=== PATIENT | male | born 1965 | race Caucasian/White ===

== ENCOUNTER 2021-03-13 21:31 | Emergency (ER) | payer OTHER ==
[~2021-03-13] VITALS: Ht 175.3 cm; Wt 86.2 kg
[2021-03-13 23:08] LABS: BASOPHILS ABSOLUTE AUTO 0.05 K/mm3 (0.00-0.23); BASOPHILS PERCENT AUTO 0 % (0-2); EOSINOPHILS ABSOLUTE AUTO 0.03 K/mm3 (0.00-0.68); EOSINOPHILS PERCENT AUTO 0 % (0-6); Hematocrit 44.5 % (37.0-53.0); Hemoglobin 15.2 g/dL (13.5-17.5); IMMATURE GRAN ABSOLUTE AUTO 0.05 K/mm3 (0.00-0.10); IMMATURE GRAN PERCENT AUTO 0 % (0-1); LYMPHOCYTES ABSOLUTE AUTO 0.19 K/mm3 (0.84-5.20); LYMPHOCYTES PERCENT AUTO 2 % (21-46); MONOCYTES ABSOLUTE AUTO 0.21 K/mm3 (0.16-1.47); MONOCYTES PERCENT AUTO 2 % (4-13); Mean Corpuscular HGB 28.9 pg (26.0-34.0); Mean Corpuscular HGB Conc 34.2 g/dL (31.5-36.5); Mean Corpuscular Volume 85 fL (80-100); Mean Platelet Volume 10.9 fL (9.1-12.4); NEUTROPHILS ABSOLUTE AUTO 12.04 K/mm3 (1.96-9.15); NEUTROPHILS PERCENT AUTO 96 % (41-73); Platelet Count 149 K/mm3 (150-400); RDW Coefficient Variation 13.7 % (11.7-14.2); RDW Standard Deviation 42.7 fL (35.1-46.3); Red Blood Cell Count 5.26 M/mm3 (4.30-5.90); White Blood Cell Count 12.57 K/mm3 (4.00-11.30)
[2021-03-13 23:21] LABS: Alanine Aminotransfer (ALT/SGP 88 U/L (12-78); Albumin, Blood 3.2 g/dL (3.4-5.0); Albumin/Globulin Ratio 0.7 (0.8-1.8); Alk Phos 109 U/L (50-136); Anion Gap 7 mmol/L (6-16); Aspartate Aminotrans (AST/SGOT 56 U/L (12-37); Blood Urea Nitrogen 22 mg/dL (8-24); Bun/Creatinine Ratio 23.5 (12.0-20.0); CO2, Blood 23 mmol/L (21-32); Calcium, Blood 8.6 mg/dL (8.5-10.1); Chloride, Blood 106 mmol/L (98-108); Creatinine, Blood 0.94 mg/dL (0.60-1.20); Globulin, Blood 4.3 g/dL (2.2-4.0); Glomerular Filtration Rate >60 (60-); Glucose, Blood 134 mg/dL (70-99); Potassium, Blood 4.1 mmol/L (3.5-5.5); Sodium, Blood 136 mmol/L (136-145); Total Protein, Blood 7.5 g/dL (6.4-8.2)
[2021-03-13] MEDS ORDERED: ONDA4ODT MM (23:31)
== END 2021-03-13 23:43 | disposition home or self-care (01) ==
LOC: ER 21:31
PROVIDERS: Student in an Organized Health Care Education/Training Program
DX: R11.2 Nausea with vomiting, unspecified (principal); R19.7 Diarrhea, unspecified
CPT/HCPCS: 80053; 83690; 85025; 96374; 99283-25; J2765; J7030

== ENCOUNTER → 2022-01-06 | Outpatient (CLI) | payer OTHER ==
[~2022-01-06] MED LIST: ONDA4ODT MM
[2022-01-06 09:04] LABS: Source, Urine Clean Catch
[2022-01-06 12:50] LABS: Appearance, Urine Clear (Clear); Bilirubin, Urine Neg (Neg); Blood, Urine 2+ (Neg); Color, Urine Yellow (P-Yellow); Glucose Qualitative, Urine Neg (Neg); Ketones, Urine Neg (Neg); Leukocyte Esterase, Urine Neg (Neg); Nitrite, Urine Neg (Neg); Protein, Urine 2+ (Neg); Urobilinogen, Urine NORM (Normal)
[2022-01-06 13:09] LABS: Bacteria Not Seen /hpf; Squamous Epithelial Cells Few /hpf (Few); White Blood Cells, Urine 0-2 /hpf (0-5)
[2022-01-06 13:12] LABS: Hyaline Casts 0-2 /lpf (0-2)
[2022-01-06 13:17] LABS: Creatinine, Urine Random 42.2 mg/dL (27.00-270.00); Protein/Creat Ratio, Ur Random 0.9
== END | disposition home or self-care (01) ==
LOC: LAB 08:30 → LAB SHORT 08:30
PROVIDERS: Internal Medicine Nephrology
DX: N18.2 Chronic kidney disease, stage 2 (mild) (principal); R80.9 Proteinuria, unspecified
CPT/HCPCS: 81001; 82570; 84156

== ENCOUNTER 2022-05-16 00:07 | Inpatient (IN) | payer OTHER ==
[~2022-05-16] VITALS: Ht 175.3 cm; Wt 94.3 kg
[~2022-05-16 00:07] MED LIST changes: +ATOR40TA PO; +INSULIN GL100 UNIT/2 SC; +Prinivil10 MG PO; +RYBELSUS3 MG PO; +XARELTO20 M1 PO
[2022-05-16 00:37] LABS: BASOPHILS ABSOLUTE AUTO 0.02 K/mm3 (0.00-0.23); BASOPHILS PERCENT AUTO 0 % (0-2); EOSINOPHILS ABSOLUTE AUTO 0.01 K/mm3 (0.00-0.68); EOSINOPHILS PERCENT AUTO 0 % (0-6); Hematocrit 24.5 % (37.0-53.0); Hemoglobin 8.8 g/dL (13.5-17.5); IMMATURE GRAN ABSOLUTE AUTO 0.26 K/mm3 (0.00-0.10); IMMATURE GRAN PERCENT AUTO 2 % (0-1); LYMPHOCYTES ABSOLUTE AUTO 1.86 K/mm3 (0.84-5.20); LYMPHOCYTES PERCENT AUTO 11 % (21-46); MONOCYTES ABSOLUTE AUTO 1.45 K/mm3 (0.16-1.47); MONOCYTES PERCENT AUTO 9 % (4-13); Mean Corpuscular HGB 29.5 pg (26.0-34.0); Mean Corpuscular HGB Conc 35.9 g/dL (31.5-36.5); Mean Corpuscular Volume 82 fL (80-100); Mean Platelet Volume 10.7 fL (9.1-12.4); NEUTROPHILS ABSOLUTE AUTO 12.92 K/mm3 (1.96-9.15); NEUTROPHILS PERCENT AUTO 78 % (41-73); Platelet Count 207 K/mm3 (150-400); RDW Coefficient Variation 14.5 % (11.7-14.2); RDW Standard Deviation 42.7 fL (35.1-46.3); Red Blood Cell Count 2.98 M/mm3 (4.30-5.90); White Blood Cell Count 16.52 K/mm3 (4.00-11.30)
[2022-05-16 00:58] LABS: Albumin, Blood 2.7 g/dL (3.4-5.0); Albumin/Globulin Ratio 0.8 (0.8-1.8); Bilirubin, Total 0.6 mg/dL (0.1-1.0); Bun/Creatinine Ratio 56.4 (12.0-20.0); Calcium, Blood 8.1 mg/dL (8.5-10.1); Creatinine, Blood 1.1 mg/dL (0.60-1.20); Globulin, Blood 3.4 g/dL (2.2-4.0); Potassium, Blood 3.8 mmol/L (3.5-5.5); Total Protein, Blood 6.1 g/dL (6.4-8.2)
[2022-05-16 04:08] LABS: Hematocrit 22.3 % (37.0-53.0); Hemoglobin 7.7 g/dL (13.5-17.5); Mean Corpuscular HGB 28.8 pg (26.0-34.0); Mean Corpuscular HGB Conc 34.5 g/dL (31.5-36.5); Mean Corpuscular Volume 84 fL (80-100); Mean Platelet Volume 10.6 fL (9.1-12.4); Platelet Count 176 K/mm3 (150-400); RDW Coefficient Variation 14.5 % (11.7-14.2); RDW Standard Deviation 43.8 fL (35.1-46.3); Red Blood Cell Count 2.67 M/mm3 (4.30-5.90); White Blood Cell Count 14.71 K/mm3 (4.00-11.30)
[2022-05-16] MEDS ORDERED: OXYC10TA19 PO (04:10)
--- NOTE | 2022-05-16 04:57 | NUR ---
ADMIT NOTE 57 YR OLD MALE ADMITTED TO FLOOR FROM THE ED WITH DX OF INTRACTABLE N/V. ALSO REPORTED DARK STOOLS. ALERT AND ORIENTED. ORIENTED TO CALL LIGHT USE. GABRIELLA LIGHT IN REACH
[2022-05-16 04:58] LABS: Bun/Creatinine Ratio 59.6 (12.0-20.0); Creatinine, Blood 1.04 mg/dL (0.60-1.20); Potassium, Blood 3.5 mmol/L (3.5-5.5)
--- NOTE | 2022-05-16 05:42 | NUR ---
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 AWAKE, IRRITABLE. IVF OF NS AT 150 ML/HR. RECEIVED THORAZINE PO FOR HICCUPS. CALL LIGHT IN REACH. WATCHING TV.
--- NOTE | 2022-05-16 18:19 | NUR ---
SHIFT SUMMARY PT HAS BEEN COOPERATIVE WITH CARE THIS AFTERNOON. PT TOOK A LONG NAP AND HAS BEEN TOLERATING CLEAR LIQUIDS. NO COMPLAINTS OF NAUSEA OR ABDOMINAL PAIN. PT HAS HAD AN EPISODE OF HICCUPS. THORAZINE ADMINISTERED FOR HICCUPS WITH GOOD RESULTS AND THE HICCUPS RESOLVED. IVF INFUSING WITHOUT DIFFICULTY. NO STOOLS THIS SHIFT. NO ACUTE CHANGES AT THIS TIME. CALL LIGHT IN REACH. BED ALARM ON FOR SAFETY. WILL CONTINUE TO MONITOR.
--- NOTE | 2022-05-17 05:18 | NUR ---
NIGHTSHIFT SUMMARY Patient appeared frusterated at the start of shift, declined to have vitals done. RN gave meds for pain, HS meds. Patient complaining of back pain. NS infusing continously. Patient slept comfortably all night, awoke once to request nausea PRN. No episdoes of emesis this shift. No BMs this shift, awaiting stool sample.
[2022-05-17 05:51] LABS: BASOPHILS ABSOLUTE AUTO 0.03 K/mm3 (0.00-0.23); BASOPHILS PERCENT AUTO 0 % (0-2); EOSINOPHILS ABSOLUTE AUTO 0.15 K/mm3 (0.00-0.68); EOSINOPHILS PERCENT AUTO 2 % (0-6); Hematocrit 19.1 % (37.0-53.0); Hemoglobin 6.7 g/dL (13.5-17.5); IMMATURE GRAN ABSOLUTE AUTO 0.22 K/mm3 (0.00-0.10); IMMATURE GRAN PERCENT AUTO 2 % (0-1); LYMPHOCYTES ABSOLUTE AUTO 2.05 K/mm3 (0.84-5.20); LYMPHOCYTES PERCENT AUTO 21 % (21-46); MONOCYTES ABSOLUTE AUTO 0.76 K/mm3 (0.16-1.47); MONOCYTES PERCENT AUTO 8 % (4-13); Mean Corpuscular HGB 29.6 pg (26.0-34.0); Mean Corpuscular HGB Conc 35.1 g/dL (31.5-36.5); Mean Corpuscular Volume 85 fL (80-100); Mean Platelet Volume 10.5 fL (9.1-12.4); NEUTROPHILS ABSOLUTE AUTO 6.38 K/mm3 (1.96-9.15); NEUTROPHILS PERCENT AUTO 67 % (41-73); Platelet Count 165 K/mm3 (150-400); RDW Coefficient Variation 14.6 % (11.7-14.2); RDW Standard Deviation 45.3 fL (35.1-46.3); Red Blood Cell Count 2.26 M/mm3 (4.30-5.90); White Blood Cell Count 9.59 K/mm3 (4.00-11.30)
[2022-05-17 06:20] LABS: Calcium, Blood 7.5 mg/dL (8.5-10.1); Creatinine, Blood 0.79 mg/dL (0.60-1.20); Potassium, Blood 3.3 mmol/L (3.5-5.5)
--- NOTE | 2022-05-17 10:04 | NUR ---
TELE CALLED. HAS BEEN NSR AT 90'S. AT 1000 JUST DROPPED TO MID 30'S FOR 2 MIN. NOW BACK UP TO HI 50'S TO LOW 60'S. WENT TO ROOM, HE GROGGY, IRRITABLE. STATES ASYMPTOMATIC. TELE STATES H/R UP TO 80'S NOW TALKING TO HIM. CALLED DR JAVIER. ADVISED. ALSO THAT TOOK PAIN MED AT 900.
[2022-05-17 11:31] LABS: Magnesium, Blood 1.8 mg/dL (1.6-2.4); Thyroid Stimulating Hormone 0.486 uIU/mL (0.360-4.800)
--- NOTE | 2022-05-17 15:50 | NUR ---
05/17/22 1550 Sindy Mora HISTORY, CHART, MEDICATIONS AND ALLERGIES REVIEWED BEFORE START OF PROCEDURE. PATIENT CONFIRMS NPO STATUS AND AGREES WITH SCHEDULED PROCEDURE. 3-LEAD EKG REVIEWED WITH PHYSICIAN PRIOR TO START OF PROCEDURE. MONITOR INTACT WITH CONTINUOUS PULSE OXIMETRY,CAPNOGRAPHY, 3-LEAD EKG, INTERMITTENT BP. SUPPLEMENTAL O2 TO BE TITRATED THROUGHOUT PROCEDURE TO MAINTAIN O2 SATURATION ABOVE 90%. PATIENT DETERMINED TO BE ASA APPROPRIATE FOR PROPOFOL SEDATION PRIOR TO START OF PROCEDURE BY
--- NOTE | 2022-05-17 16:47 | NUR ---
PT RECEIVED BACK FROM DAY SURG. PT CONTINUES TO HAVE PRBC INFUSING. VSS.
--- NOTE | 2022-05-17 17:43 | NUR ---
CALLED DR JAVIER RE BP. SHE OKAYED 10 MG LISINOPRIL NOW AND 20 DAILY START TOMORROW.
--- NOTE | 2022-05-17 17:58 | NUR ---
CALLED DR KONG B/P INCREASE. ORDERS FOR ONE TIME LISINOPRIL AND INCREASED DAILY
--- NOTE | 2022-05-17 18:16 | NUR ---
PT RECEIVED 1 U PRBC TODAY. ALSO WENT TO SCOPE THIS AFT. RN REPORT STATES ESOPHAGITIS. DR STARTED PROTONIX AND CARAFATE. PT HAD INCREASED B/P. INCREASED DOSE OF LISINOPRIL STARTED. CONTINUES TO BE IRRITABLE T/O DAY. NO OTHER NEW CONCERNS. BED IN LOW POSITION, CALL LITE IN REACH, CALLS APPROP
[2022-05-17 18:34] LABS: Hematocrit 23.8 % (37.0-53.0); Hemoglobin 8.1 g/dL (13.5-17.5)
--- NOTE | 2022-05-18 06:35 | NUR ---
SHIFT SUMMARY PATIENT ALERT AND ORIENTED. DID NOT TOLERATE ORAL INTAKE SWALLOWING ANYTHING CAUSED HEARTBURN AND NAUSEA. PRN MEDICATIONS ADMINISTERED PER EMAR. NO OTHER ISSUES NOTED OVERNIGHT. CALL LIGHT WITHIN REACH. REPORT GIVEN TO ONCOMING RN.
[2022-05-18 07:36] LABS: BASOPHILS ABSOLUTE AUTO 0.06 K/mm3 (0.00-0.23); BASOPHILS PERCENT AUTO 1 % (0-2); EOSINOPHILS PERCENT AUTO 3 % (0-6); Hematocrit 23.2 % (37.0-53.0); IMMATURE GRAN ABSOLUTE AUTO 0.44 K/mm3 (0.00-0.10); IMMATURE GRAN PERCENT AUTO 5 % (0-1); LYMPHOCYTES ABSOLUTE AUTO 1.96 K/mm3 (0.84-5.20); LYMPHOCYTES PERCENT AUTO 21 % (21-46); MONOCYTES ABSOLUTE AUTO 0.72 K/mm3 (0.16-1.47); MONOCYTES PERCENT AUTO 8 % (4-13); Mean Corpuscular HGB 29.1 pg (26.0-34.0); Mean Corpuscular HGB Conc 34.5 g/dL (31.5-36.5); Mean Corpuscular Volume 84 fL (80-100); Mean Platelet Volume 10.1 fL (9.1-12.4); NEUTROPHILS ABSOLUTE AUTO 5.98 K/mm3 (1.96-9.15); NEUTROPHILS PERCENT AUTO 63 % (41-73); Platelet Count 172 K/mm3 (150-400); RDW Coefficient Variation 14.8 % (11.7-14.2); RDW Standard Deviation 45.1 fL (35.1-46.3); Red Blood Cell Count 2.75 M/mm3 (4.30-5.90); White Blood Cell Count 9.46 K/mm3 (4.00-11.30)
[2022-05-18 08:00] LABS: Bun/Creatinine Ratio 16.7 (12.0-20.0); Calcium, Blood 8.2 mg/dL (8.5-10.1); Creatinine, Blood 0.66 mg/dL (0.60-1.20); Potassium, Blood 3.3 mmol/L (3.5-5.5)
--- NOTE | 2022-05-18 08:53 | NUR ---
IRRITABLE PT EASILY IRRITATED THIS AM. PT C/O OF 10 HEARTBURN SYMPTOMS. PT STATES THE CARAFATE GAVE HIM THE HEARTBURN LAST NIGHT. THIS RN EDUCATED THE PT ON THE FUNCTION AND USE OF CARAFATE. PT AGREED TO TAKE IT AGAIN THIS AM. TUMS PROVIDED FOR THE PT FOR HEARTBURN RELIEF. THIS RN ASKED IF THE MILK HELPED THE PTS HEARTBURN, PT STATES "I CAN'T TOLERATED ANYTHING BUT WATER". THIS RN CLARIFIED THAT THE PT WAS NOT ABLE TO TOLERATE THE MILK THEN. PT REPLIED "WELL NO, THE MILK HELPED". THIS RN THEN ASKED AGAIN TO CLARIFY OF THE MILK HELPED OR NOT. PT THEN YELLED THAT HE WAS DONE ANSWERING QUESTIONS . THIS RN REMINDED THE PT THAT CLARIFICATION WAS NEEDED AND THAT HE DOES NOT NEED TO YELL. PT CONTINUED TO YELL. RN LEFT THE ROOM AND SHUT THE DOOR. UNSURE OF IF THE MILK HELPED OR NOT.
[2022-05-18 15:25] LABS: Hematocrit 22.1 % (37.0-53.0); Hemoglobin 7.7 g/dL (13.5-17.5); Mean Corpuscular HGB 29.5 pg (26.0-34.0); Mean Corpuscular HGB Conc 34.8 g/dL (31.5-36.5); Mean Corpuscular Volume 85 fL (80-100); Mean Platelet Volume 9.8 fL (9.1-12.4); Platelet Count 176 K/mm3 (150-400); RDW Coefficient Variation 14.7 % (11.7-14.2); RDW Standard Deviation 44.8 fL (35.1-46.3); Red Blood Cell Count 2.61 M/mm3 (4.30-5.90); White Blood Cell Count 9.84 K/mm3 (4.00-11.30)
--- NOTE | 2022-05-18 17:32 | NUR ---
SHIFT SUMMARY MAGIC MOUTHWASH ADDED TO PT MED REGIMEN BY DR. KOWALSKI. PT STATES THIS HAS HELPED TREMENDOUSLY WITH HIS HEARTBURN. PRN TUMS GIVEN TWICE THIS SHIFT. PT UTILIZING MILK PRN WELL FOR RELIEF. NO OTHER ACUTE CHANGES IN ASSESSMENT AT THIS TIME. VS REVIEWED. PT UP IN BED. CALL LIGHT IN REACH. DENIES OTHER NEEDS AT THIS TIME.
--- NOTE | 2022-05-19 05:52 | NUR ---
SUMMARY: PATIENT AOX4 THROUGHOUT SHIFT. VSS. NO ACUTE CHANGES. PATIENT WAS MEDICATED PRN WITH MAALOX, TUMS, AND OXY. PATIENT DID NOT HAVE A LOT OF ORAL INTAKE. PATIENT WAS ABLE TO SLEEP AND GET UP TO RESTROOM 3+TIMES.
[2022-05-19 06:47] LABS: Albumin, Blood 2.5 g/dL (3.4-5.0); Albumin/Globulin Ratio 0.8 (0.8-1.8); Bilirubin, Total 0.5 mg/dL (0.1-1.0); Bun/Creatinine Ratio 12.2 (12.0-20.0); Calcium, Blood 7.9 mg/dL (8.5-10.1); Creatinine, Blood 0.66 mg/dL (0.60-1.20); Percent Saturation 19.7 % (20.0-50.0); Potassium, Blood 3.7 mmol/L (3.5-5.5); Thyroid Stimulating Hormone 1.83 uIU/mL (0.360-4.800); Total Protein, Blood 5.5 g/dL (6.4-8.2)
[2022-05-19 08:37] LABS: Hematocrit 20.3 % (37.0-53.0); Hemoglobin 7.3 g/dL (13.5-17.5); Mean Corpuscular HGB 30.4 pg (26.0-34.0); Mean Corpuscular Volume 85 fL (80-100); Mean Platelet Volume 9.8 fL (9.1-12.4); Platelet Count 169 K/mm3 (150-400); RDW Coefficient Variation 15.2 % (11.7-14.2); RDW Standard Deviation 46.3 fL (35.1-46.3); White Blood Cell Count 8.48 K/mm3 (4.00-11.30)
--- NOTE | 2022-05-19 15:25 | NUR ---
PT HAS BEEN IRRITABLE AND GROUCHY WITH STAFF TODAY. EASILY ANGERED AND LABILE WITH ANXIETY. PT EXPRESSED CONCERN TO THE AUTHOR TODAY THAT NOTHING HAD BEEN DONE FOR HIM IN A WEEK AND IF NOTHING WAS TO COME OF THIS STAY THEN HE WOULD LIKE TO GO HOME. HE STATED " THE ANSWER TO ALL MY PROBLEMS IS AT HOME" THIS RN OFFERED QUESTIONING ABOUT WHAT WAS AT HOME AND PT STATED " MY GUN, A BULLET. i CAN SOLVE ALL THIS" WHEN QUESTIONED FURTHER ABOUT HAVING SUICIDAL IDEATIONS OR PLANS HE REFUSED TO ANSWER ONLY SAYING HE WISHED TO SPEAK TO THE DR. THIS WAS PASSED ON TO DR KOWALSKI.
--- NOTE | 2022-05-19 18:26 | NUR ---
SHIFT SUMMARY PT HAD BEEN AGITATED AND IRRITABLE ALL DAY. MOOD HAS IMPROVED TOWARD THE EVENING. SEE PREVIOUS NOT ABOUT PTS MOOD SWINGS AND SI REMARKS. PT IS NOW CONTENT. HE HAS BEEN UP INDEPENDENT. PACKED UNIT OF RBCS TO BE GIVEN WHEN IRON IS FINISHED AND BLOOD SLIP IS SENT. CT ORDERED. PT IS EAGER TO DISCHARGE, BUT UNDERSTNAD HE NEEDS TO STAY UNTIL HE CAN TOLERATE MEALS. ABLE TO EAT DINNER WITH NO NAUSEA OR VOMITING.
--- NOTE | 2022-05-20 01:08 | NUR ---
CARE ASSUMPTION: PATIENT IS A&O X4, IS AGILE GETTING OUT OF BED AND STEADY WALKING. PATIENT EXPRESSES FRUSTRATION THAT HE WILL BE GETTING A BLOOD TRANSFUSION TONIGHT, STATES "WHAT IS GOING ON WITH THE TIMING OF EVERYTHING? THE DOCTOR WANTS ME TO REST BUT YOU'RE KEEPING ME UP ALL NIGHT WHEN I SAT AROUND ALL DAY DOING NOTHING!" PATIENT YELLS AT THIS RN DURING MIDNIGHT INSULIN ADMINISTRATION REPEATING THE SAME SENTIMENT. REFUSED TO GIVE RN ARM FOR BP READING STATING "NOT UNTIL I GET WARM." BLOOD TRANSFUSION HAS BEEN TRANSFUSING PER RECORD. NO ADVERSE EFFECTS AT THIS TIME AND VSS. BED LOW WITH CALL LIGHT IN REACH.
[2022-05-20 04:14] LABS: Hematocrit 24.9 % (37.0-53.0); Hemoglobin 8.4 g/dL (13.5-17.5)
--- NOTE | 2022-05-20 07:20 | NUR ---
SHIFT SUMMARY: PATIENT VS WNL ON RA. MEDICATED PER EMAR. TRANSFUSED 1 PRBC WITH IMPROVED HGB. PATIENT NOT COOPERATIVE WITH CARES, THREATENING TO LEAVE AMA " SOON IT'S LIGHT OUT." PATIENT SWEATING PROFUSELY IN BED, AFEBRIBLE, BUT STATES IS COLD. BED LOW WITH CALL LIGHT IN REACH. REPORT GIVEN.
[2022-05-20 08:16] LABS: Hematocrit 24.1 % (37.0-53.0); Hemoglobin 8.4 g/dL (13.5-17.5); Mean Corpuscular HGB 30.1 pg (26.0-34.0); Mean Corpuscular HGB Conc 34.9 g/dL (31.5-36.5); Mean Corpuscular Volume 86 fL (80-100); Mean Platelet Volume 9.3 fL (9.1-12.4); Platelet Count 194 K/mm3 (150-400); RDW Coefficient Variation 15.8 % (11.7-14.2); RDW Standard Deviation 49.1 fL (35.1-46.3); Red Blood Cell Count 2.79 M/mm3 (4.30-5.90); White Blood Cell Count 8.63 K/mm3 (4.00-11.30)
[2022-05-20 08:35] LABS: Albumin, Blood 2.5 g/dL (3.4-5.0); Albumin/Globulin Ratio 0.9 (0.8-1.8); Bilirubin, Total 0.8 mg/dL (0.1-1.0); Bun/Creatinine Ratio 12.7 (12.0-20.0); Calcium, Blood 8.4 mg/dL (8.5-10.1); Creatinine, Blood 0.71 mg/dL (0.60-1.20); Globulin, Blood 2.9 g/dL (2.2-4.0); Potassium, Blood 3.8 mmol/L (3.5-5.5); Total Protein, Blood 5.4 g/dL (6.4-8.2)
[2022-05-20] MEDS ORDERED: ALUM-MAG HYDRO360 M1 PO (09:18)
[2022-05-20] MEDS ORDERED: Calcium Carbon500 MG PO (09:19)
[2022-05-20] MEDS ORDERED: MIRT30 PO (09:20)
[2022-05-20] MEDS ORDERED: REGLAN10 M2 PO (09:20)
[2022-05-20] MEDS ORDERED: OMEP20ER PO (09:23)
[2022-05-20] MEDS ORDERED: SUCR1 PO (09:32)
--- NOTE | 2022-05-20 10:03 | NUR ---
DISCHARGE NOTE PT REFUSED CARE THIS MORNING INCLUDING MEDICATIONS AND AN ASSESMENT. HE WAS ADMANT TO ORTHOTICS TECHNICIAN HE WAS LEAVING AMA. DISCHARGE ORDER WAS PUT IN. PAPERQWORK FAXXED TO THE PHARMACY, [facility]. PT ANGRILY DECLINED TO BE WALKED TO THE DOOR AND REFUSED TO LET RN ACCOMPANY HIM TO THE SECOND FLOOR. CHARGE NURSE NOTIFIED. PT DISCHARGE AT 1000.
== END 2022-05-20 10:03 | disposition home or self-care (01) | DRG 378 ==
LOC: ER 00:07 → MEDS 00:08 → ENPENDDIS 05-20 09:00 → MEDS 05-20 10:03
PROVIDERS: Emergency Medicine; Internal Medicine; Student in an Organized Health Care Education/Training Program; ADMIT Internal Medicine
PROC: 0DB68ZX Excision of Stomach, Via Natural or Artificial Opening Endoscopic, Diagnostic (ICD-10-PCS; 2022-05-17)
PROC: 0DB18ZX Excision of Upper Esophagus, Via Natural or Artificial Opening Endoscopic, Diagnostic (ICD-10-PCS; 2022-05-17)
PROC: 0DB58ZX Excision of Esophagus, Via Natural or Artificial Opening Endoscopic, Diagnostic (ICD-10-PCS; 2022-05-17)
PROC: 30233N1 Transfusion of Nonautologous Red Blood Cells into Peripheral Vein, Percutaneous Approach (ICD-10-PCS; principal; 2022-05-17 16:00)
PROC: 0DB38ZX Excision of Lower Esophagus, Via Natural or Artificial Opening Endoscopic, Diagnostic (ICD-10-PCS; 2022-05-17 16:00)
DX: K92.1 Melena (principal); E87.1 Hypo-osmolality and hyponatremia; K20.80 Other esophagitis without bleeding; K92.0 Hematemesis; K29.40 Chronic atrophic gastritis without bleeding; E11.9 Type 2 diabetes mellitus without complications; K31.9 Disease of stomach and duodenum, unspecified; K80.20 Calculus of gallbladder without cholecystitis without obstruction; M54.9 Dorsalgia, unspecified; G89.29 Other chronic pain; Z87.891 Personal history of nicotine dependence; Z79.4 Long term (current) use of insulin; Z79.899 Other long term (current) drug therapy; Z86.718 Personal history of other venous thrombosis and embolism; D72.828 Other elevated white blood cell count; R00.1 Bradycardia, unspecified; R00.0 Tachycardia, unspecified; K22.81 Esophageal polyp; K29.80 Duodenitis without bleeding; E86.0 Dehydration
CPT/HCPCS: 36415; 36430; 74177; 80048; 80053; 82607; 82728; 82746; 82947; 83540; 83550; 83605; 83690; 83735; 84443; 84484; 85014; 85018; 85025; 85027; 86850; 86900; 86901; 86923; 87040; 88305; 88342; 96361; 96374; 96375; 96376; 99285-25; A9270; C9113; G0378; J1200; J1630; J1815; J2405; J2704; J2916; J3010; J3480; J7030; J7050; J7120; P9016; Q9967

== ENCOUNTER 2022-06-14 16:15 | Emergency (ER) | payer OTHER ==
[~2022-06-14] VITALS: Ht 175.3 cm; Wt 90.7 kg
[~2022-06-14 16:15] MED LIST changes: +ALUM-MAG HYDRO360 M1 PO; +Calcium Carbon500 MG PO; +MIRT30 PO; +OMEP20ER PO; +OXYC10TA19 PO; +REGLAN10 M2 PO; +SUCR1 PO
[2022-06-14 16:58] LABS: BASOPHILS ABSOLUTE AUTO 0.07 K/mm3 (0.00-0.23); BASOPHILS PERCENT AUTO 1 % (0-2); EOSINOPHILS PERCENT AUTO 2 % (0-6); Hematocrit 36.3 % (37.0-53.0); Hemoglobin 11.7 g/dL (13.5-17.5); IMMATURE GRAN ABSOLUTE AUTO 0.04 K/mm3 (0.00-0.10); IMMATURE GRAN PERCENT AUTO 1 % (0-1); LYMPHOCYTES ABSOLUTE AUTO 0.49 K/mm3 (0.84-5.20); LYMPHOCYTES PERCENT AUTO 6 % (21-46); MONOCYTES ABSOLUTE AUTO 0.44 K/mm3 (0.16-1.47); MONOCYTES PERCENT AUTO 5 % (4-13); Mean Corpuscular HGB 29.3 pg (26.0-34.0); Mean Corpuscular HGB Conc 32.2 g/dL (31.5-36.5); Mean Corpuscular Volume 91 fL (80-100); Mean Platelet Volume 9.6 fL (9.1-12.4); NEUTROPHILS ABSOLUTE AUTO 7.44 K/mm3 (1.96-9.15); NEUTROPHILS PERCENT AUTO 86 % (41-73); Platelet Count 222 K/mm3 (150-400); RDW Coefficient Variation 14.7 % (11.7-14.2); Red Blood Cell Count 3.99 M/mm3 (4.30-5.90); White Blood Cell Count 8.68 K/mm3 (4.00-11.30)
[2022-06-14 17:14] LABS: Albumin, Blood 3.2 g/dL (3.4-5.0); Albumin/Globulin Ratio 0.9 (0.8-1.8); Bilirubin, Total 0.7 mg/dL (0.1-1.0); Bun/Creatinine Ratio 11.1 (12.0-20.0); Calcium, Blood 9.1 mg/dL (8.5-10.1); Creatinine, Blood 0.72 mg/dL (0.60-1.20); Globulin, Blood 3.4 g/dL (2.2-4.0); Potassium, Blood 3.7 mmol/L (3.5-5.5); Total Protein, Blood 6.6 g/dL (6.4-8.2)
[2022-06-14] MEDS ORDERED: Pepcid40 MG PO (21:22)
[2022-06-14] MEDS ORDERED: ONDA4ODT SL (21:22)
== END 2022-06-14 21:48 | disposition home or self-care (01) ==
LOC: ER 16:15
PROVIDERS: Physician Assistant
DX: K22.10 Ulcer of esophagus without bleeding (principal); M54.50 Low back pain, unspecified; G89.29 Other chronic pain; F11.20 Opioid dependence, uncomplicated; E11.9 Type 2 diabetes mellitus without complications; Z79.899 Other long term (current) drug therapy; Z79.4 Long term (current) use of insulin; Z87.891 Personal history of nicotine dependence
CPT/HCPCS: 36415; 80053; 83690; 85025; A9270; C9113; J1170; J1790; J2405; J7120

== ENCOUNTER 2022-06-17 15:49 | Emergency (ER) | payer OTHER ==
[~2022-06-17] VITALS: Ht 175.3 cm; Wt 90.7 kg
[~2022-06-17 15:49] MED LIST changes: +ONDA4ODT SL; +Pepcid40 MG PO
== END 2022-06-17 17:04 | disposition home or self-care (01) ==
LOC: ER 15:49
DX: U07.1 COVID-19 (principal); E11.9 Type 2 diabetes mellitus without complications; Z79.01 Long term (current) use of anticoagulants; Z79.899 Other long term (current) drug therapy; Z79.4 Long term (current) use of insulin; Z87.891 Personal history of nicotine dependence
CPT/HCPCS: 99281

== ENCOUNTER → 2022-12-10 | Outpatient (CLI) | payer OTHER | END | disposition home or self-care (01) | LOC: LAB 11:43 → LAB SHORT 11:43 | PROVIDERS: Family Medicine | DX: Z51.81 Encounter for therapeutic drug level monitoring (principal); Z79.891 Long term (current) use of opiate analgesic | CPT/HCPCS: G0480 ==

== ENCOUNTER 2022-12-17 03:23 | Day surgery (SDC) | payer MEDICARE, OTHER | END 2022-12-17 22:37 | disposition home or self-care (01) | LOC: WOUND 03:23 | DX: E11.621 Type 2 diabetes mellitus with foot ulcer (principal); L97.512 Non-pressure chronic ulcer of other part of right foot with fat layer exposed; L97.422 Non-pressure chronic ulcer of left heel and midfoot with fat layer exposed; E11.40 Type 2 diabetes mellitus with diabetic neuropathy, unspecified; I73.9 Peripheral vascular disease, unspecified; I87.2 Venous insufficiency (chronic) (peripheral) | CPT/HCPCS: A9270; G0463 ==

== ENCOUNTER 2022-12-20 08:47 | Day surgery (SDC) | payer MEDICARE, OTHER | END 2022-12-20 22:34 | disposition home or self-care (01) | LOC: WOUND 08:47 | DX: E11.621 Type 2 diabetes mellitus with foot ulcer (principal); E11.40 Type 2 diabetes mellitus with diabetic neuropathy, unspecified; E11.51 Type 2 diabetes mellitus with diabetic peripheral angiopathy without gangrene; I87.2 Venous insufficiency (chronic) (peripheral) | CPT/HCPCS: G0463 ==

== ENCOUNTER 2022-12-22 03:00 | Day surgery (SDC) | payer OTHER | END 2022-12-22 22:36 | disposition home or self-care (01) | LOC: WOUND 03:00 | DX: E11.621 Type 2 diabetes mellitus with foot ulcer (principal); E11.40 Type 2 diabetes mellitus with diabetic neuropathy, unspecified; E11.51 Type 2 diabetes mellitus with diabetic peripheral angiopathy without gangrene; I87.2 Venous insufficiency (chronic) (peripheral) | CPT/HCPCS: G0463 ==

== ENCOUNTER 2022-12-24 02:07 | Day surgery (SDC) | payer MEDICARE, OTHER | END 2022-12-24 22:55 | disposition home or self-care (01) | LOC: WOUND 02:07 | DX: E11.621 Type 2 diabetes mellitus with foot ulcer (principal); L97.512 Non-pressure chronic ulcer of other part of right foot with fat layer exposed; L97.522 Non-pressure chronic ulcer of other part of left foot with fat layer exposed; E11.40 Type 2 diabetes mellitus with diabetic neuropathy, unspecified; E11.51 Type 2 diabetes mellitus with diabetic peripheral angiopathy without gangrene; I87.2 Venous insufficiency (chronic) (peripheral) | CPT/HCPCS: G0463 ==

== ENCOUNTER 2022-12-27 02:02 | Day surgery (SDC) | payer MEDICARE, OTHER | END 2022-12-27 22:42 | disposition home or self-care (01) | LOC: WOUND 02:02 | DX: E11.621 Type 2 diabetes mellitus with foot ulcer (principal); E11.40 Type 2 diabetes mellitus with diabetic neuropathy, unspecified; E11.51 Type 2 diabetes mellitus with diabetic peripheral angiopathy without gangrene; I87.2 Venous insufficiency (chronic) (peripheral) | CPT/HCPCS: G0463 ==

== ENCOUNTER 2022-12-29 05:38 | Day surgery (SDC) | payer MEDICARE, OTHER | END 2022-12-29 22:54 | disposition home or self-care (01) | LOC: WOUND 05:38 | DX: E11.621 Type 2 diabetes mellitus with foot ulcer (principal); L97.812 Non-pressure chronic ulcer of other part of right lower leg with fat layer exposed; L97.822 Non-pressure chronic ulcer of other part of left lower leg with fat layer exposed; E11.40 Type 2 diabetes mellitus with diabetic neuropathy, unspecified; E11.51 Type 2 diabetes mellitus with diabetic peripheral angiopathy without gangrene; I87.2 Venous insufficiency (chronic) (peripheral) | CPT/HCPCS: G0463 ==

== ENCOUNTER 2022-12-31 00:27 | Day surgery (SDC) | payer MEDICARE, OTHER | END 2023-01-01 22:39 | disposition home or self-care (01) | LOC: WOUND 00:27 | DX: E11.621 Type 2 diabetes mellitus with foot ulcer (principal); E11.40 Type 2 diabetes mellitus with diabetic neuropathy, unspecified; E11.51 Type 2 diabetes mellitus with diabetic peripheral angiopathy without gangrene; I87.2 Venous insufficiency (chronic) (peripheral) | CPT/HCPCS: G0463 ==

== ENCOUNTER 2023-01-05 00:22 | Day surgery (SDC) | payer MEDICARE, OTHER | END 2023-01-05 22:48 | disposition home or self-care (01) | LOC: WOUND 00:22 | DX: E11.621 Type 2 diabetes mellitus with foot ulcer (principal); L97.509 Non-pressure chronic ulcer of other part of unspecified foot with unspecified severity; E11.40 Type 2 diabetes mellitus with diabetic neuropathy, unspecified; I73.9 Peripheral vascular disease, unspecified; I87.2 Venous insufficiency (chronic) (peripheral) | CPT/HCPCS: G0463 ==

== ENCOUNTER 2023-01-07 00:58 | Day surgery (SDC) | payer MEDICARE, OTHER | END 2023-01-09 22:35 | disposition home or self-care (01) | LOC: WOUND 00:58 | DX: E11.621 Type 2 diabetes mellitus with foot ulcer (principal); L97.512 Non-pressure chronic ulcer of other part of right foot with fat layer exposed; L97.422 Non-pressure chronic ulcer of left heel and midfoot with fat layer exposed; E11.51 Type 2 diabetes mellitus with diabetic peripheral angiopathy without gangrene; E11.40 Type 2 diabetes mellitus with diabetic neuropathy, unspecified; I87.2 Venous insufficiency (chronic) (peripheral) | CPT/HCPCS: G0463 ==

== ENCOUNTER 2023-01-10 01:08 | Day surgery (SDC) | payer MEDICARE, OTHER ==
[2023-02-09] MEDS ORDERED: XARELTO20 M1 PO (15:56)
[2023-02-09] MEDS ORDERED: RYBELSUS7 MG PO (15:57)
[2023-02-09] MEDS ORDERED: ZESTORETIC 20-1 EAC1 PO (16:05)
== END 2023-01-10 22:46 | disposition home or self-care (01) ==
LOC: WOUND 01:08
DX: E11.621 Type 2 diabetes mellitus with foot ulcer (principal); L97.512 Non-pressure chronic ulcer of other part of right foot with fat layer exposed; L97.422 Non-pressure chronic ulcer of left heel and midfoot with fat layer exposed; E11.40 Type 2 diabetes mellitus with diabetic neuropathy, unspecified; I73.9 Peripheral vascular disease, unspecified; I87.2 Venous insufficiency (chronic) (peripheral)
CPT/HCPCS: G0463

== ENCOUNTER 2023-01-12 00:43 | Day surgery (SDC) | payer MEDICARE, OTHER | END 2023-01-12 22:39 | disposition home or self-care (01) | LOC: WOUND 00:43 | DX: E11.621 Type 2 diabetes mellitus with foot ulcer (principal); E11.40 Type 2 diabetes mellitus with diabetic neuropathy, unspecified; I73.9 Peripheral vascular disease, unspecified; I87.2 Venous insufficiency (chronic) (peripheral) | CPT/HCPCS: G0463 ==

== ENCOUNTER 2023-01-14 02:43 | Day surgery (SDC) | payer MEDICARE, OTHER | END 2023-01-16 22:49 | disposition home or self-care (01) | LOC: WOUND 02:43 | DX: E11.621 Type 2 diabetes mellitus with foot ulcer (principal); L97.512 Non-pressure chronic ulcer of other part of right foot with fat layer exposed; E11.40 Type 2 diabetes mellitus with diabetic neuropathy, unspecified; E11.51 Type 2 diabetes mellitus with diabetic peripheral angiopathy without gangrene; I87.2 Venous insufficiency (chronic) (peripheral) | CPT/HCPCS: G0463 ==

== ENCOUNTER 2023-01-21 03:34 | Day surgery (SDC) | payer MEDICARE, OTHER | END 2023-01-24 22:48 | disposition home or self-care (01) | LOC: WOUND 03:34 | DX: E11.621 Type 2 diabetes mellitus with foot ulcer (principal); L97.519 Non-pressure chronic ulcer of other part of right foot with unspecified severity; E11.40 Type 2 diabetes mellitus with diabetic neuropathy, unspecified; I73.9 Peripheral vascular disease, unspecified; I87.2 Venous insufficiency (chronic) (peripheral) | CPT/HCPCS: G0463 ==

== ENCOUNTER 2023-04-03 19:29 | Emergency (ER) | payer MEDICARE, OTHER ==
[~2023-04-03] VITALS: Ht 175.3 cm; Wt 99.8 kg
[~2023-04-03 19:29] MED LIST changes: +RYBELSUS7 MG PO; +ZESTORETIC 20-1 EAC1 PO
[2023-04-03 19:56] LABS: BASOPHILS ABSOLUTE AUTO 0.07 K/mm3 (0.00-0.23); BASOPHILS PERCENT AUTO 1 % (0-2); EOSINOPHILS PERCENT AUTO 1 % (0-6); Hematocrit 36.2 % (37.0-53.0); Hemoglobin 12.7 g/dL (13.5-17.5); IMMATURE GRAN ABSOLUTE AUTO 0.07 K/mm3 (0.00-0.10); IMMATURE GRAN PERCENT AUTO 1 % (0-1); LYMPHOCYTES ABSOLUTE AUTO 1.92 K/mm3 (0.84-5.20); LYMPHOCYTES PERCENT AUTO 13 % (21-46); MONOCYTES ABSOLUTE AUTO 0.98 K/mm3 (0.16-1.47); MONOCYTES PERCENT AUTO 7 % (4-13); Mean Corpuscular HGB Conc 35.1 g/dL (31.5-36.5); Mean Corpuscular Volume 86 fL (80-100); Mean Platelet Volume 10.1 fL (9.1-12.4); NEUTROPHILS ABSOLUTE AUTO 11.84 K/mm3 (1.96-9.15); NEUTROPHILS PERCENT AUTO 79 % (41-73); Platelet Count 237 K/mm3 (150-400); RDW Coefficient Variation 13.8 % (11.7-14.2); RDW Standard Deviation 42.7 fL (35.1-46.3); Red Blood Cell Count 4.23 M/mm3 (4.30-5.90); White Blood Cell Count 14.98 K/mm3 (4.00-11.30)
[2023-04-03 20:11] LABS: Albumin, Blood 3.5 g/dL (3.4-5.0); Albumin/Globulin Ratio 0.9 (0.8-1.8); Bun/Creatinine Ratio 16.9 (12.0-20.0); Calcium, Blood 10.2 mg/dL (8.5-10.1); Creatinine, Blood 0.95 mg/dL (0.60-1.20); Globulin, Blood 3.8 g/dL (2.2-4.0); Potassium, Blood 4.1 mmol/L (3.5-5.5); Total Protein, Blood 7.3 g/dL (6.4-8.2)
[2023-04-03 23:36] VITALS: BP 134/71
== END 2023-04-03 23:37 | disposition home or self-care (01) ==
LOC: ER 19:29
PROVIDERS: Physician Assistant
DX: K21.00 Gastro-esophageal reflux disease with esophagitis, without bleeding (principal); E11.9 Type 2 diabetes mellitus without complications; Z86.718 Personal history of other venous thrombosis and embolism; Z79.01 Long term (current) use of anticoagulants; Z79.4 Long term (current) use of insulin; Z87.891 Personal history of nicotine dependence
CPT/HCPCS: 71046; 80053; 84484; 85025; 93005; 93010; 96361; 96374; 96375; 99285-25; A9270; C9113; J2405; J7030

== ENCOUNTER → 2023-05-24 | Outpatient (CLI) | payer MEDICARE, OTHER ==
[2023-05-25 15:28] LABS: Stool Occult Blood Guaiac 1 Pos (Neg)
== END ==
LOC: LAB SHORT 19:00 → LAB 19:00
PROVIDERS: Nurse Practitioner Family
DX: K92.1 Melena (principal)
CPT/HCPCS: 82272

== ENCOUNTER → 2023-10-07 | Outpatient (CLI) | payer MEDICARE, OTHER ==
[2023-10-07 15:00] LABS: BASOPHILS ABSOLUTE AUTO 0.06 K/mm3 (0.00-0.23); BASOPHILS PERCENT AUTO 1 % (0-2); EOSINOPHILS ABSOLUTE AUTO 0.38 K/mm3 (0.00-0.68); EOSINOPHILS PERCENT AUTO 5 % (0-6); Hematocrit 32.8 % (37.0-53.0); Hemoglobin 10.9 g/dL (13.5-17.5); IMMATURE GRAN ABSOLUTE AUTO 0.04 K/mm3 (0.00-0.10); IMMATURE GRAN PERCENT AUTO 1 % (0-1); LYMPHOCYTES ABSOLUTE AUTO 1.82 K/mm3 (0.84-5.20); LYMPHOCYTES PERCENT AUTO 24 % (21-46); MONOCYTES ABSOLUTE AUTO 0.53 K/mm3 (0.16-1.47); MONOCYTES PERCENT AUTO 7 % (4-13); Mean Corpuscular HGB 28.6 pg (26.0-34.0); Mean Corpuscular HGB Conc 33.2 g/dL (31.5-36.5); Mean Corpuscular Volume 86 fL (80-100); Mean Platelet Volume 11.3 fL (9.1-12.4); NEUTROPHILS ABSOLUTE AUTO 4.72 K/mm3 (1.96-9.15); NEUTROPHILS PERCENT AUTO 63 % (41-73); Platelet Count 207 K/mm3 (150-400); RDW Coefficient Variation 14.8 % (11.7-14.2); RDW Standard Deviation 45.8 fL (35.1-46.3); Red Blood Cell Count 3.81 M/mm3 (4.30-5.90); White Blood Cell Count 7.55 K/mm3 (4.00-11.30)
== END | disposition home or self-care (01) ==
LOC: LAB 12:31 → LAB SHORT 12:31
PROVIDERS: Nurse Practitioner Family
DX: K62.5 Hemorrhage of anus and rectum (principal)
CPT/HCPCS: 85025

== ENCOUNTER → 2024-07-25 | Outpatient (CLI) | payer MEDICARE, OTHER | END | disposition home or self-care (01) | LOC: LAB SHORT 14:38 → LAB 14:38 | DX: R23.4 Changes in skin texture (principal); D48.5 Neoplasm of uncertain behavior of skin | CPT/HCPCS: 88305; 88312 ==